=== PATIENT | female | born 1955 | race Caucasian/White ===

== ENCOUNTER 2017-01-16 03:38 | Emergency (ER) | payer OTHER ==
--- NOTE | ~2017-01-16 | CT52 ---
[facility] A Service of [facility] RADIOLOGY TEXT RESULTS PATIENT: TR SCALES LOCATION: [facility] : 53 UNIT #: [id number] AGE: [address]: Billy Cash SEX: F ORDER DR: [id number] [facility] [address] [place], [place] [address] [id number] E MR#: [id number] Acc #: [id number] NAME: TR SCALES : 1955 SEX: F STUDY DATE/TIME: 01/16/2017 4:17 UNIT: [facility] ROOM: STUDY DESCRIPTION: CT Cervical Spine Wo Cont Attending Physician: Billy Cash P.A.-C. Ordering Physician: Billy Cash P.A.-C. Primary Care Physician: Primary Care Physician No MEDICAL IMAGING REPORT This report is preliminary unless electronic signature is present EXAM, CT C-spine no contrast 01/16/2017 INDICATIONS Alcohol on board, fell down the steps, hematoma on the left forehead and neck pain. Symptoms began today. Lung cancer, diabetes, tobacco abuse. TECHNIQUE Noncontrast CT of the C-spine was performed with sagittal and coronal reformats. No comparisons. The CT exam was performed with one or more of the following radiation dose reduction techniques: automatic exposure control, adjustment of mA and/or kV according to patient size, and iterative reconstruction. FINDINGS CT C-spine: The dens and lateral masses are intact. No acute fracture or malalignment. There is extensive anterior osteophyte formation at the midcervical levels involving C4, C5, C6 and a lesser extent C7. Disc osteophyte complex and spurring posteriorly at C6-7 with at least mild central canal stenosis. There is mild uncovertebral spurring in the lcv-oz-szkuj cervical levels. Probable at least mild bilateral foraminal stenosis in the lower cervical levels. There is bilateral facet arthropathy, left greater than right probably most severe at C6-7 and C7-T1. The lung apices demonstrate emphysema. There is a spiculated parenchymal density in the upper lobe on the right measuring 12 x 13 x 13 mm. This may represent apical scarring but an apical lung mass could present similarly and this is not fully included in the field of view on this CT tailored to evaluate the cervical spine. A dedicated chest CT is recommended for further assessment particularly given the history of lung STS. [facility] A Service of [facility] RADIOLOGY TEXT RESULTS PAT[facility]: [id number] 53 UNIT #: [id number] AGE: [address]: Billy Cash PAC SEX: F ORDER DR: cancer. We have no comparisons for this patient. The chest CT could be performed non emergently. IMPRESSION 1. No acute fracture or malalignment. Multilevel degenerative changes in the cervical spine related to degenerative disc disease and facet arthropathy which is probably most severe at C6-7. At least mild central canal stenosis at C6-7. 2. Probable multilevel foraminal stenosis in the gsw-io-obewh cervical levels. 3. Emphysema with an indeterminate spiculated parenchymal opacity in the right lung apex measuring 13 x 13 x 12 mm. The patient has a history of lung cancer and this could represent the patient's primary malignancy. It is not fully included in the field of view. Differential also includes parenchymal apical scarring/fibrosis. Comparison to prior outside chest CTs would be recommended for assessment of stability. We have no comparisons for this patient in our system. This could also be further evaluated with a non emergent dedicated chest CT when clinically appropriate if there are no readily available comparison studies. Dictated by... Cesar Lou M.D. THIS IS AN ELECTRONICALLY VERIFIED REPORT Cesar Lou M.D. at 01/16/2017 10:01 PM Gisella TD: 01/16/2017 10:21 JOB #: [id number] MEDICAL IMAGING REPORT Page 1 of 1 COPY
--- NOTE | ~2017-01-16 | EKG ---
PATIENT: TR SCALES UNIT #: [id number] Ventricular Rate: 53 BPM Atrial Rate: 53 BPM P-R Interval: 200 ms QRS Duration: 94 ms Q-T Interval: 464 ms QTC Calculation(Bezet): 435 ms P [place]: 27 degrees Calculated R [place]: -23 degrees Calculated T [place]: 29 degrees Diagnosis Line: Sinus bradycardia with sinus arrhythmia Diagnosis Line: Otherwise normal ECG Diagnosis Line: No previous ECGs available Diagnosis Line: Confirmed by JEFE ANTHONY MD ([id number]) on 01/17/2017 Diagnosis Line: 9:13:57 PM INTERPRETING MD: RAJ HOFFMAN
--- NOTE | ~2017-01-16 | CT71 ---
[facility] A Service of [facility] RADIOLOGY TEXT RESULTS PATIENT: TR SCALES LOCATION: [facility] : 53 UNIT #: [id number] AGE: [address]: Billy Cash SEX: F ORDER DR: [id number] [facility]. [place], [place] [address] [id number] E MR#: [id number] Acc #: [id number] NAME: TR SCALES : 1955 SEX: F STUDY DATE/TIME: 01/16/2017 4:08 UNIT: [facility] ROOM: STUDY DESCRIPTION: CT Head Wo Contrast Attending Physician: Billy Cash P.A.-C. Ordering Physician: Billy Cash P.A.-C. Primary Care Physician: No Primary Care Physician MEDICAL IMAGING REPORT This report is preliminary unless electronic signature is present EXAM Head CT no contrast 01/16/2017 INDICATIONS Fell down the steps, alcohol on board, hematoma of the left forehead, neck pain, lung cancer, diabetes TECHNIQUE Noncontrast CT of the brain was performed. This CT exam was performed with one or more of the following radiation dose reduction techniques: Automatic exposure control, adjustment of mA and/or kV according to patient size, and iterative reconstruction. COMAPRISON No comparisons. FINDINGS CT brain There is motion degradation. These were the best images possible. There is mild generalized atrophy. Sulci and ventricles are otherwise unremarkable. No midline shift. No evidence of acute intracranial hemorrhage. There is no mass, mass effect or edema to suggest acute infarct and no extraaxial fluid collections are present. The globes are intact. The bones are intact. There is acute on chronic sphenoid sinusitis on the left and acute on chronic left maxillary sinusitis. No secondary sign of occult fracture. Soft tissue hematoma on the left superiorly approaching the vertex. IMPRESSION 1. Motion degraded study 2. No clearly acute intracranial process. [facility] A Service of [facility] RADIOLOGY TEXT RESULTS PATIENT: TR SCALES LOCATION: [facility] : 53 UNIT #: [id number] AGE: [address]: Billy Cash SEX: F ORDER DR: 3. Soft tissue hematoma on the left near the vertex with no underlying fracture. 4. Acute on chronic maxillary and sphenoid sinus disease. Dictated by... Cesar Lou M.D. THIS IS AN ELECTRONICALLY VERIFIED REPORT Cesar Lou M.D. at 01/16/2017 10:01 PM Nuria TD: 01/16/2017 10:16 JOB #: [id number] MEDICAL IMAGING REPORT Page 1 of 1 COPY
== END 2017-01-16 10:20 | disposition home or self-care (01) ==
LOC: CED 03:38
DX: S00.03XA Contusion of scalp, initial encounter (principal); S00.81XA Abrasion of other part of head, initial encounter; F10.129 Alcohol abuse with intoxication, unspecified; E11.9 Type 2 diabetes mellitus without complications; F17.210 Nicotine dependence, cigarettes, uncomplicated; Y08.89XA Assault by other specified means, initial encounter; Y92.009 Unspecified place in unspecified non-institutional (private) residence as the place of occurrence of the external cause
CPT/HCPCS: 70450; 72125; 82947; 93005; 99284